=== PATIENT | male | born 1965 | race Hispanic/Latino ===

== ENCOUNTER 2018-02-02 10:24 | Outpatient (CLI) | payer OTHER ==
--- NOTE | 2018-02-02 11:41 | ULT ---
TESTICULAR ULTRASOUND: Indication: Left hydrocele. FINDINGS: Right testicle measures approximately 3.0 x 2.5 x 2.0 cm. The left testicle measures 4.6 x 3.6 x 2.7 cm. Color doppler with spectral analysis demonstrates normal and equal blood flow to both testicles. The rest testicle is smaller than the left and is mildly heterogeneous although focal mass is identified. There is small left hydrocele. The epididymis appears unremarkable bilaterally. IMPRESSION: 1. The right testicle is small and mildly heterogenous but without focal mass lesion. 2. Small left hydrocele. POS: [facility]
== END 2018-02-02 10:25 | disposition home or self-care (01) ==
LOC: ULT 10:24
PROVIDERS: ATTEND Urology
DX: N43.3 Hydrocele, unspecified (principal)
CPT/HCPCS: 76870; 93976

== ENCOUNTER 2020-11-01 19:39 | Emergency (ER) | payer OTHER ==
[2020-11-01 21:10] LABS: #Basophils 0.1 thou/uL (0.0-0.2); #Eosinphils 0.2 thou/uL (0.0-0.7); #Lymphocytes 2.5 thou/uL (1.20-3.40); #Monocytes 0.8 thou/uL (0.11-0.59); #Neutrophils 5.4 thou/uL (1.40-6.50); %Basophils 1.2 % (0.0-1.0); %Eosinophils 1.8 % (0.0-10.0); %Lymphocytes 28.3 % (21.0-51.0); %Monocytes 8.6 % (0.0-10.0); %Neutrophils 60.1 % (42.0-75.0); Hemoglobin 13.6 g/dL (14.0-18.0); Mean Corpuscular HGB CONC 34.4 g/dL (32.0-36.0); Mean Corpuscular Hemoglobin 29.6 pg (27.0-31.0); Mean Corpuscular Volume 85.9 fL (78.0-98.0); Mean Platelet Volume 10.5 fL (7.4-10.4); Platelet Count 116 thou/uL (130-400); RBC Distribution Width 13.9 % (11.5-14.5); Red Blood Cell (RBC) Count 4.61 mill/uL (4.70-6.10); White Blood Cell (WBC) Count 8.9 thou/uL (4.8-10.8)
[2020-11-01 21:29] LABS: ALT (SGPT) 26 U/L (8-55); AST (SGOT) 21 U/L (5-34); Alkaline Phosphatase 93 U/L (40-110); Anion Gap 10 mmol/L (10-20); BUN (Urea Nitrogen) 11 mg/dL (8.4-25.7); Bilirubin, Total 0.7 mg/dL (0.2-1.2); Calc. Creatinine Clearance 0 mL/min (70-130); Calcium 8.9 mg/dL (7.8-10.44); Carbon Dioxide 27 mmol/L (22-29); Chloride 108 mmol/L (98-107); Globulin 2.6 g/dL (2.4-3.5); Glucose 82 mg/dL (70-105); Potassium 3.6 mmol/L (3.5-5.1); Protein, Total 6.6 g/dL (6.0-8.3); Sodium 141 mmol/L (136-145)
[2020-11-01 21:53] LABS: Platelet Morphology Comment Appears Decreased
[2020-11-01 22:21] LABS: SARS-CoV-2 NAA Rapid Test Not Detected (NotDetected)
[2020-11-01] MEDS ORDERED: cefTRIAXone\\ROCEPHIN 1 GM VIAL ONE (22:37)
[2020-11-01] MEDS ORDERED: Azithromycin 250 MG TAB ONE (22:37)
== END 2020-11-01 22:58 | disposition home or self-care (01) ==
LOC: ERS 19:39
DX: J18.9 Pneumonia, unspecified organism (principal); K21.9 Gastro-esophageal reflux disease without esophagitis; I10 Essential (primary) hypertension; J45.909 Unspecified asthma, uncomplicated; Z20.822 Contact with and (suspected) exposure to COVID-19; Z79.899 Other long term (current) drug therapy
CPT/HCPCS: 0240U; 71045; 71275; 80053; 83605; 83880; 85025; 93005; 96374; J0696

== ENCOUNTER 2021-01-03 09:55 | Outpatient (CLI) | payer OTHER | END 2021-01-03 09:56 | disposition home or self-care (01) | LOC: ULT 09:55 | PROVIDERS: ATTEND Registered Nurse Community Health | DX: Z13.31 Encounter for screening for depression (principal); K83.8 Other specified diseases of biliary tract; R93.2 Abnormal findings on diagnostic imaging of liver and biliary tract | CPT/HCPCS: 76700; 76856 ==

== ENCOUNTER 2021-01-05 16:21 | Emergency (ER) | payer OTHER ==
[2021-01-05 16:58] LABS: #Basophils 0.1 thou/uL (0.0-0.2); #Eosinphils 0.3 thou/uL (0.0-0.7); #Lymphocytes 1.9 thou/uL (1.20-3.40); #Monocytes 0.6 thou/uL (0.11-0.59); #Neutrophils 7.3 thou/uL (1.40-6.50); %Basophils 0.7 % (0.0-1.0); %Eosinophils 2.6 % (0.0-10.0); %Lymphocytes 18.8 % (21.0-51.0); %Monocytes 6.3 % (0.0-10.0); %Neutrophils 71.6 % (42.0-75.0); Hemoglobin 15.1 g/dL (14.0-18.0); Mean Corpuscular HGB CONC 34.6 g/dL (32.0-36.0); Mean Corpuscular Hemoglobin 30.4 pg (27.0-31.0); Mean Corpuscular Volume 87.8 fL (78.0-98.0); Mean Platelet Volume 10.4 fL (7.4-10.4); Platelet Count 145 thou/uL (130-400); RBC Distribution Width 13.4 % (11.5-14.5); Red Blood Cell (RBC) Count 4.97 mill/uL (4.70-6.10); White Blood Cell (WBC) Count 10.2 thou/uL (4.8-10.8)
[2021-01-05 17:13] LABS: Bilirubin Negative (Negative); Blood, Urine Negative (Negative); Clarity Clear (Clear); Glucose, Urine (Dipstick) Normal (Negative); Ketone, Urine Negative (Negative); Leukocyte Negative Leu/uL (Negative); Nitrite Negative (Negative); Protein, Urine (Dipstick) Negative (Neg-Trace); Specific Gravity, Urine 1.006 (1.002-1.036); Urobilinogen Normal mg/dL (Less than 2); pH, Urine 6.5 (5.0-9.0)
[2021-01-05 17:19] LABS: ALT (SGPT) 16 U/L (8-55); AST (SGOT) 16 U/L (5-34); Albumin 4.2 g/dL (3.5-5.0); Alkaline Phosphatase 87 U/L (40-110); Anion Gap 15 mmol/L (10-20); BUN (Urea Nitrogen) 9 mg/dL (8.4-25.7); Bilirubin, Total 0.8 mg/dL (0.2-1.2); Calc. Creatinine Clearance 0 mL/min (70-130); Calcium 9.5 mg/dL (7.8-10.44); Carbon Dioxide 23 mmol/L (22-29); Chloride 105 mmol/L (98-107); Globulin 3.2 g/dL (2.4-3.5); Glucose 97 mg/dL (70-105); Potassium 3.8 mmol/L (3.5-5.1); Protein, Total 7.4 g/dL (6.0-8.3); Sodium 139 mmol/L (136-145)
[2021-01-05 18:56] LABS: SARS-CoV-2 NAA Rapid Test Not Detected (NotDetected)
== END 2021-01-05 18:30 | disposition home or self-care (01) ==
LOC: ERS 16:21
DX: R07.89 Other chest pain (principal); A08.4 Viral intestinal infection, unspecified; I10 Essential (primary) hypertension; J45.909 Unspecified asthma, uncomplicated; Z86.16 Personal history of COVID-19
CPT/HCPCS: 0240U; 36415; 71045; 80053; 81003; 84484; 85025; 93005

== ENCOUNTER 2022-09-25 18:13 | Emergency (ER) | payer OTHER | END 2022-09-25 18:45 | disposition left against medical advice (07) | LOC: ERS 18:13 | DX: Z53.21 Procedure and treatment not carried out due to patient leaving prior to being seen by health care provider (principal) ==